=== PATIENT | female | born 1985 | race Caucasian/White ===

== ENCOUNTER 2022-02-13 04:20 | Emergency (ER) | payer MEDICAID ==
[2022-02-13] MEDS ORDERED: Ibuprofen 600 MG Tab PO ONE (04:35)
[2022-02-13] MEDS ORDERED: Cyclobenzaprine 10 MG Tab PO ONE (04:36)
== END 2022-02-13 06:11 | disposition home or self-care (01) ==
LOC: MW.ED 04:20
DX: R42 Dizziness and giddiness (principal); R11.0 Nausea; R51.9 Headache, unspecified; Y09 Assault by unspecified means
CPT/HCPCS: 70450; 72125; 99284; A9270